=== PATIENT | male | born 1990 | race Caucasian/White ===

== ENCOUNTER → 2018-03-26 10:31 | Outpatient (CLI) | payer BC, SELFPAY ==
--- NOTE | 2018-03-26 10:36 | US_ITS ---
STUDY: RENAL ULTRASOUND - COMPLETE REASON FOR EXAM: Male, 27 years old. Hypertension TECHNIQUE: Ultrasound evaluation of the kidneys was performed with real-time and static cline-scale imaging. COMPARISON: None. FINDINGS: RIGHT KIDNEY: Normal location of the right kidney, which is normal in size. The right kidney measures 11.5 x 5.8 x 5.3 cm. There is a normal cortex of the right kidney. The renal cortex measures 2.0 cm. There is no right renal mass or cyst. There are no right renal calculi. There is no right hydronephrosis. DISTAL RIGHT URETER: There is non-visualization of the distal right ureter. There is no demonstrated right ureterovesical junction calculus. There is a visualized right ureteral jet. LEFT KIDNEY: Normal location of the left kidney, which is normal in size. The left kidney measures 12.3 x 5.7 x 5.6 cm. There is a normal cortex of the left kidney. The renal cortex measures 2.0 cm. There is a 1.6 x 1.4 x 1.2 cm inferior pole cyst. 2 specks of calcifications are adjacent to this cystic wall. There is no left-sided hydronephrosis. DISTAL LEFT URETER: There is non-visualization of the distal left ureter. There is no demonstrated left ureterovesical junction calculus. There is a visualized left ureteral jet. AORTA: There is no elongation or tortuosity of the abdominal aorta. Aorta measures: Proximal cm. Middle cm. Distal cm. Aorta measure transversely: Proximal cm. Middle cm. Distal cm. There is no demonstrated aneurysm.. I.V.C.: The IVC is patent. BLADDER: The distended urinary bladder was not well distended. It had a total volume of 24 mL.. US/Kidney and Bladder IMPRESSION: No hydronephrosis on either side. A small cyst in the inferior pole of the left kidney. There are 2 small calculi adjacent to the left cystic wall Electronically Signed: Ortiz Velazquez MD at 6:36 EST Tel , Service support ,
== END ==
PROVIDERS: Family Provider Internal Medicine; PCP Internal Medicine; Referring Provider Nurse Practitioner; Visit Provider Nurse Practitioner
DX: R03.0 Elevated blood-pressure reading, without diagnosis of hypertension (principal)
CPT/HCPCS: 76770

== ENCOUNTER → 2018-04-05 07:53 | Outpatient (CLI) | payer BC, SELFPAY ==
--- NOTE | 2018-04-05 08:01 | ECHOD_ITS ---
Reason For Study: ELEVATED BLOOD PRESSURE Procedure This was a 2D Doppler, Color Flow transthoracic echocardiogram. Exam performed in department. Left Ventricle Normal LV size. Left ventricular systolic function is normal. The estimated ejection fraction is 60 %. No evidence for diastolic dysfunction. No regional wall motion abnormalities noted. Right Ventricle Normal RV size. Normal systolic function. Atria Normal left atrium. Normal right atrium. Aneurysmal atrial septum. Late and faintly positive agitated saline contrast study for a right to left interatrial shunct c/w a small PFO vs. ASD. Mitral Valve There is no mitral annular calcification. Normal mitral valve. Trivial mitral valve insufficiency. Tricuspid Valve Normal tricuspid valve. Trivial tricuspid valve insufficiency. Aortic Valve Trisinus/trileaflet aortic valve. Normal aortic valve. Pulmonic Valve The pulmonic valve is not well visualized. Mild (1+) pulmonic valve insufficiency. Great Vessels Normal sized aortic root. Pericardium/Pleural No pericardial effusion. Medication 22 gauge I.V. with prn adaptor inserted into right arm. Performed a rapid injection of agitated mix of 9 cc saline and 1cc air to assess for atrial septal defect. MMode/2D Measurements & Calculations LVIDd: 5.4 cm IVSd: 0.71 cm Ao root diam: 3.0 cm LVIDs: 3.5 cm LVPWd: 0.77 cm RVDd: 3.7 cm FS: 35.3 % LAV(MOD-bp): 55.6 ml LVAd ap4: 41.8 cm2 SV(MOD-sp4): 90.9 ml LAV(MOD-bp) Indexed: 26.9 ml/m2 EDV(MOD-sp4): 154.8 ml LAV(MOD-sp2): 56.7 ml EDV(sp4-el): 160.4 ml LAV(MOD-sp4): 48.2 ml LVAs ap4: 24.1 cm2 ESV(MOD-sp4): 63.9 ml ESV(sp4-el): 64.0 ml EF(MOD-sp4): 58.7 % EF(sp4-el): 60.1 % SV(sp4-el): 96.4 ml LA A4 area: 18.9 cm2 LA dimension(2D): 3.9 cm RA A4 area: 16.6 cm2 Time Measurements MV dec time: 0.24 sec Doppler Measurements & Calculations MV E max lalo: 69.3 cm/sec Lat Peak E' Lalo: 15.3 cm/sec Med Peak E' Lalo: 12.0 cm/sec MV A max lalo: 48.3 cm/sec E/E' lat: 4.5 E/E' med: 5.8 MV E/A: 1.4 Ao V2 max: 134.0 cm/sec LV V1 max: 107.8 cm/sec PA V2 max: 102.3 cm/sec Ao max P.2 mmHg LV V1 max P.7 mmHg Interpretation Summary Left ventricular systolic function is normal. The estimated ejection fraction is 60 %. Trivial mitral valve insufficiency. Trivial tricuspid valve insufficiency. Mild (1+) pulmonic valve insufficiency. Aneurysmal atrial septum. Late and faintly positive agitated saline contrast study for a right to left interatrial shunct c/w a small PFO vs. ASD. No evidence for diastolic dysfunction. Ordering Physician: Alecia Sarmiento Referring Physician: CONRADO LOPEZ Performed By: Breonna Syed RDCS
== END ==
PROVIDERS: Family Provider Internal Medicine; PCP Internal Medicine; Referring Provider Nurse Practitioner; Visit Provider Nurse Practitioner
DX: R03.0 Elevated blood-pressure reading, without diagnosis of hypertension (principal)
CPT/HCPCS: 93306; A4216

== ENCOUNTER → 2018-04-17 08:17 | Outpatient (CLI) | payer BC, SELFPAY ==
--- NOTE | 2018-04-17 08:19 | RDU_ITS ---
Reason For Study: Hypertension Right Renal Artery Left Renal Artery Right renal artery ostium 112/41.2 Left renal artery ostium 122/42.8 RSV/EDV. PSV/EDV. Right renal artery proximal Left renal artery proximal PSV/EDV 119/39.7 PSV/EDV. 127/41.2 . Right renal artery mid 122/45.8 Left renal artery mid 127/39.1 PSV/EDV. PSV/EDV . Right renal artery distal 85.7/31 Left renal artery distal 138/51.3 PSV/EDV. PSV/EDV. Right Renal Parenchyma Left Renal Parenchyma Upper Pole Medula 19.3/6.42 Left upper pole medulla 30.6/13.7 PSV/EDV. PSV/EDV . Right upper pole medulla EDR 0.33 . Left upper pole medulla EDR 0.45 . Right upper pole medulla R.I. Left upper pole medulla R.I. 0.55 . 0.67 . UP Cortex 22.3/10.4 PSV/EDV. Upper Moe Cortx 15.6/7.94 PSV/EDV. Left upper pole cortex EDR 0.47 . Right upper pole cortex EDR 0.51 . Left upper pole cortex R.I. 0.53 . Right upper pole cortex R.I. 0.49 . Left lower Pole medulla 22.6/10.1 Right lower Pole medulla 25.2/9.17 PSV/EDV . PSV/EDV . Left lower pole medulla EDR 0.45 . Right lower pole medulla EDR 0.36 . Left lower pole medulla R.I. 0.55 . Right lower pole medulla R.I. Lower Pole Cortx 21.7/9.78 PSV/EDV. 0.64 . Left lower pole cortex EDR 0.45 . Lower Pole Cortex 17.3/6.72 Left lower pole cortex R.I. 0.55 . PSV/EDV. Left Renal Hilar Right lower pole cortex EDR 0.39 . LT Hilar avg 38.8/14.4 PSV/EDV . Right lower pole cortex R.I. 0.61 . Left hilar acceleration time 44 Right Renal Hilar m/sec. Right Hilar avg 31.8/10.4 PSV/EDV. Left Renal Dimensions Right hilar acceleration time 37 Left kidney size 12.1 cm . m/sec. Left cortical dimension 1.99 cm . Right Renal Dimensions Right kidney size 11.6 cm . Right cortical dimension 1.62 cm . Aorta Proximal abdominal aorta 1.39 x 1.43 cm . Proximal abdominal aorta peak systolic velocity is 115 cm/sec . Distal abdominal aorta 1.21 x 1.19 cm . Distal abdominal aorta peak systolic velocity is 142 cm/sec . Interpretation Summary Dimensions of the intra-abdominal aorta appear normal, without evidence of aneurysmal dilatation. Renal artery velocities are bilaterally normal. Acceleration times are normal bilaterally. There is no evidence of hemodynamically significant renal artery stenosis on either side. Renovascular resistance appears to be bilaterally normal . The right cortical dimension is increased. The left cortical dimension is increased. Kidneys appear normal in size bilaterally. Ordering Physician: Alecia Sarmiento Referring Physician: Hollie Jerez M.D. Performed By: Hasmukh Toure RVT and Student
== END ==
PROVIDERS: Family Provider Internal Medicine; PCP Internal Medicine; Referring Provider Nurse Practitioner; Visit Provider Nurse Practitioner
DX: I10 Essential (primary) hypertension (principal)
CPT/HCPCS: 93975

== ENCOUNTER 2018-05-25 08:48 | Outpatient (CLI) | payer BC, SELFPAY ==
[2018-05-03 16:24] VITALS: BMI 30.4
--- NOTE | 2018-05-25 08:51 | ECHOTEE_ITS ---
Reason For Study: ASD/PFO Medication NICK probe passed without difficulty. No complications were noted. Cetacaine Topical [place] given X4 orally. Versed 2 mg given slow IVP. Fentanyl 100 mcg given slow IVP. Performed a rapid injection of agitated mix of 9 cc saline and 1cc air to assess for atrial septal defect. Left Ventricle Normal LV size. Left ventricular systolic function is normal. The estimated ejection fraction is 65 %. No regional wall motion abnormalities noted. Right Ventricle Normal RV size. The right ventricular wall motion is normal. Atria Aneurysmal atrial septum. Positive agitated saline contrast study for right to left interatrial shunt compatible with a small PFO. Normal left atrium. There is no sponatenous contrast in the left atrium. No thrombus is detected in the left atrial appendage. Normal right atrium. There is no sponatenous contrast in the right atrium. No obvious are a/appendage thrombus identified. Mitral Valve There is no mitral annular calcification. Normal mitral valve. Trivial mitral valve insufficiency. Tricuspid Valve Normal tricuspid valve. Trivial tricuspid valve insufficiency. Aortic Valve Trisinus/trileaflet aortic valve. Normal aortic valve. Pulmonic Valve The pulmonic valve is not well visualized. Vessels Normal appearing thoracic aorta. Pericardium No pericardial effusion. Interpretation Summary Left ventricular systolic function is normal. The estimated ejection fraction is 65 %. There is no sponatenous contrast in the left atrium. No thrombus is detected in the left atrial appendage. Trivial mitral valve insufficiency. Trivial tricuspid valve insufficiency. Aneurysmal atrial septum. Positive agitated saline contrast study for right to left interatrial shunt compatible with a small PFO. Ordering Physician: Octavio Metz Referring Physician: Hollie Jerez Performed By: Rebekah Mota, RDCS, RVT
[2018-06-01 20:07] LABS: Epinephrine, 24Ur 10 ug/24 hr (0-20); Norepinephrine, 24Ur 80 ug/24 hr (0-135); VMA, 24UR 5.1 mg/24 hr (0.0-7.5)
[2018-06-03 10:16] LABS: Dopamine, 24Ur 344 ug/24 hr (0-510); Dopamine, UR 313 ug/L (Undefined); Epinephrine, Ur 9 ug/L (Undefined); Norepinephrine, Ur 73 ug/L (Undefined); VMA, UR 4.6 mg/L (Undefined)
== END 2018-05-25 14:25 | disposition home or self-care (01) ==
PROVIDERS: Family Provider Internal Medicine; PCP Internal Medicine; Referring Provider Internal Medicine Cardiovascular Disease; Visit Provider Internal Medicine Cardiovascular Disease
DX: I10 Essential (primary) hypertension (principal); Q21.1 Atrial septal defect
CPT/HCPCS: 82384; 84585; 93312; 93320; 93325; J7040; A4216

== ENCOUNTER → 2018-09-18 | Outpatient (CLI) | payer BC, SELFPAY ==
[2018-08-09 15:52] VITALS: BMI 31.1
--- NOTE | 2018-09-18 13:18 | STRESSREP ---
Stress Test Report Date: 09-18-18 Procedure: Exercise tolerance test Indications: Chest pain Consent: Per the patient Procedure: The patient exercised on a Kashif protocol for 12 minutes and 34 seconds completing Stage IV and 34 seconds of Stage V achieving a peak heart rate of 166 bpm (86 % predicted maximal heart rate) with a peak blood pressure 184/80 mmHg and a peak MET capacity of approximately 14 MET's. The baseline ECG demonstrated sinus bradycardia: Nonspecific ST/T wave abnormality. The peak exercise ECG demonstrated no obvious ECG changes. [There were no cardiac dysrhythmias pretest, during exercise, or recovery]. The functional capacity was considered good. The patient had to remittent vague chest discomfort during exercise with spontaneous improvement/resolution during exercise. The examination was discontinued secondary to dyspnea and leg discomfort. Impression: 1. Technically adequate (percent predicted maximal heart rate greater than 85%) exercise tolerance test 2. Peak exercise ECG with with no obvious ECG changes== 3. [There were no cardiac dysrhythmias during exercise or recovery] This note was generated with [employer] software. It may contain incorrect words, spelling, and punctuation that were not noted in checking the note before signing.
== END | disposition home or self-care (01) ==
LOC: CVS 11:46
PROVIDERS: Family Provider Internal Medicine; PCP Internal Medicine; Referring Provider Internal Medicine Cardiovascular Disease; Visit Provider Internal Medicine Cardiovascular Disease
DX: R07.9 Chest pain, unspecified (principal); R06.02 Shortness of breath
CPT/HCPCS: 93017

== ENCOUNTER → 2020-05-12 07:29 | Outpatient (CLI) | payer BC, SELFPAY ==
[2019-09-02 16:02] VITALS: BMI 27.0
--- NOTE | 2020-05-12 07:31 | US_ITS ---
STUDY: ABDOMINAL ULTRASOUND - RIGHT UPPER QUADRANT REASON FOR VISIT: Male, 29 years old epigastric pain TECHNIQUE: Ultrasound evaluation of the right upper quadrant was performed with real-time and static herrera-scale imaging. TECHNICAL QUALITY: Adequate. COMPARISON: None. FINDINGS: Liver: The liver measures 15.7 cm. There is normal echogenicity of the liver. The bile ducts are within normal limits. There is hepatic color flow. The direction of portal flow is hepatopetal. There is no demonstrated mass lesion. Gallbladder: Normal distended gallbladder. The gallbladder wall measures 2.8 mm. There is a negative sonographic Morris''s sign. There is no pericholecystic fluid. There are no gallstones. Common Bile Duct (C.B.D.): The common bile duct measures 2.0 mm. Pancreas: There is nonvisualization of the pancreas due to overlying bowel gas. Right Kidney: Normal size of the right kidney. The right kidney measures 11.4 cm x 5.3 cm x 6 cm. Normal renal cortex. The right cortex measures 2.0 cm. There is no demonstrated renal mass or cyst. There is no right hydronephrosis. US/Abdomen Limited IMPRESSION: Normal right upper quadrant ultrasound examination. Electronically Signed: Julián James MD at 8:56 EST , Service support ,
== END ==
PROVIDERS: PCP Internal Medicine; Referring Provider Internal Medicine; Visit Provider Internal Medicine
DX: R10.13 Epigastric pain (principal)
CPT/HCPCS: 76705

== ENCOUNTER → 2020-06-11 14:55 | Outpatient (CLI) | payer BC, SELFPAY ==
[2019-09-02 16:02] VITALS: BMI 27.0
== END ==
PROVIDERS: PCP Internal Medicine; Referring Provider Internal Medicine Gastroenterology; Visit Provider Internal Medicine Gastroenterology
DX: Z11.52 Encounter for screening for COVID-19 (principal)
CPT/HCPCS: 87635; C9803; U0002